=== PATIENT | female | born 1965 | race Caucasian/White ===

== ENCOUNTER 2018-07-12 15:49 | Emergency (ER) | payer SELFPAY ==
[2018-07-12 17:40] LABS: BASOPHILS # (AUTO) 0.1 10^3/uL (0.0-0.1); BASOPHILS % (AUTO) 0.9 %; EOSINOPHILS # (AUTO) 0.2 10^3/uL (0.0-0.7); EOSINOPHILS % (AUTO) 1.6 %; HGB - HEMOGLOBIN 12.7 g/dL (12.0-16.0); LYMPHOCYTES # (AUTO) 2.1 10^3/uL (1.5-3.5); LYMPHOCYTES % (AUTO) 21.2 %; MEAN CORPUSCULAR HEMOGLOBIN 30.9 pg (27.0-31.0); MEAN CORPUSCULAR VOLUME 90.8 fL (81.0-99.0); MEAN PLATELET VOLUME 7.8 fL (7.9-10.8); MONOCYTES # (AUTO) 0.8 10^3/uL (0.0-1.0); MONOCYTES % (AUTO) 8.3 %; NEUTROPHILS # (AUTO) 6.7 10^3/uL (1.5-6.6); PLT - PLATELET COUNT 303 10^3/uL (130-450); RED BLOOD COUNT 4.12 10^6/uL (4.20-5.40); RED CELL DISTRIBUTION WIDTH 13.5 % (12.0-15.0); WHITE BLOOD COUNT 9.9 x10^3/uL (4.8-10.8)
[2018-07-12 17:49] LABS: CREATININE 0.7 mg/dL (0.4-1.0); MAGNESIUM 2.6 mg/dL (1.7-2.8)
[2018-07-12] MEDS ORDERED: CYCLOBENZAPRINE 10 MG TABLET PO STA (18:14)
--- NOTE | 2018-07-12 18:18 | ED Physician Documentation ---
PD HPI LOWER EXT INJURY - Stated complaint Stated Complaint: R LEG PX - Chief complaint Chief Complaint: Ext Problem - History obtained from History obtained from: Patient, Family - History of Present Illness PD HPI LOW EXT INJURY LOCATION: Right (For the last 2 days she has had pain in the right thigh that is worse with movements. There was no injury. There is no associated fevers or chills. It has made it somewhat difficult to walk. She has had similar problems with her neck in the past and she requests a muscle relaxer. She denies any swelling of the affected extremity. She has no health issues.) Review of Systems Constitutional: denies: Fever, Chills Cardiac: denies: Chest pain / pressure, Palpitations Respiratory: denies: Dyspnea, Cough GI: denies: Abdominal Pain PD PAST MEDICAL HISTORY - Past Medical History Past Medical History: No Cardiovascular: None Respiratory: None Neuro: None Endocrine/Autoimmune: None GI: None CALENDER OPERATOR: None : None HEENT: None Psych: None Musculoskeletal: None Derm: None - Past Surgical History Past Surgical History: Yes /CALENDER OPERATOR: section - Present Medications Home Medications: Ambulatory Orders Medication Instructions Recorded Confirmed Cyclobenzaprine [Flexeril] 10 mg PO TID PRN #20 tablet 07/12/18 - Allergies Allergies/Adverse Reactions: Allergies Allergy/AdvReac Type Severity Reaction Status Date / Time No Known Drug Allergies Allergy Verified 07/12/18 16:34 - Social History Does the pt smoke?: No Smoking Status: Never smoker Does the pt drink ETOH?: No Does the pt have substance abuse?: No - Immunizations Immunizations are current?: No - POLST Patient has POLST: No PD ED PE NORMAL - Vitals Vital signs reviewed: Yes - General General: Alert and oriented X 3, No acute distress - Extremities Extremities: Other (She has mild tenderness of the right anterior thigh, there is no warmth or redness. She is able to walk and bear weight. Flexion at the knee is nonpainful as is extension at the knee. There is no calf swelling or tenderness.) - Neuro Neuro: Alert and oriented X 3, Normal speech Results - Vitals Vitals: Vital Signs - 24 hr 07/12/18 16:32 Temperature 36.8 C Heart Rate 87 Respiratory 18 Rate Blood Pressure 135/81 H O2 Saturation 99 Oxygen O2 Source Room air - Labs Labs: Laboratory Tests 07/12/18 07/12/18 17:32 17:32 WBC 9.9 RBC 4.12 L Hgb 12.7 Hct 37.4 MCV 90.8 MCH 30.9 MCHC 34.0 RDW 13.5 Plt Count 303 MPV 7.8 L Neut # (Auto) 6.7 H Lymph # (Auto) 2.1 [place]ison # (Auto) 0.8 Eos # (Auto) 0.2 Baso # (Auto) 0.1 Absolute Nucleated RBC 0.00 Nucleated RBC % 0.0 Sodium 138 Potassium 3.7 Chloride 102 Carbon Dioxide 23 Anion Gap 13.0 BUN 13 Creatinine 0.7 Estimated GFR (MDRD) 87 L Glucose 173 H Calcium 9.0 Magnesium 2.6 - Rads (name of study) RLE Dvt sono Radiology: EMP read contemporaneously (neg) Departure - Departure Disposition: 01 Home, Self Care Clinical Impression: Pain of lower extremity Qualifiers: Laterality: right Qualified Code(s): M79.604 - Pain in right leg Condition: Good Record reviewed to determine appropriate education?: Yes Instructions: ED Strain Muscle Ext Prescriptions: Cyclobenzaprine [Flexeril] 10 mg PO TID PRN #20 tablet PRN Reason: Spasms Print Language: Slovenian Comments: Harvey nivel de azcar en la cameron est ligeramente elevado, cari un seguimiento con harvey mdico para esto. Regrese por nuevos sntomas de empeoramiento especialmente fiebre o peor dolor. Harvey presin arterial se elev hoy en el departamento de emergencias. [place] no significa que tenga hipertensin, es un fenmeno comn acudir al servicio de urgencias y tener presin arterial elevada. Le recomiendo que consulte a harvey mdico de atencin primaria dentro de la semana para que le vuelvan a revisar cuando se sienta mejor.
--- NOTE | 2018-07-12 18:27 | Ultrasound Report ---
Reason: RLE PAIN Procedure Date: 07/12/2018 Accession Number: [id number] / [id number] Procedure: US - Duplex Ext Veins Right CPT Code: FULL RESULT: EXAM: RIGHT LOWER EXTREMITY VENOUS ULTRASOUND EXAM DATE: 07/12/2018 06:00 PM. CLINICAL HISTORY: Right lower extremity cramping pain for 2 days. COMPARISON: None. TECHNIQUE: Real-time sonographic vascular imaging was performed by the superintendent water and sewer systems through the lower extremity utilizing both color-flow and Doppler spectral analysis. Multiple hvac sales representative static images were saved for review. FINDINGS: Examination mildly limited because of patient body habitus. Common Femoral Vein (CFV): Normal. CFV-GSV Junction: Normal. Profunda Femoral Vein (PFV): Normal. Femoral Vein (FV) Prox: Normal. Femoral Vein (FV) Mid: Normal. Femoral Vein (FV) Dist: Normal. Popliteal Vein: Normal. Posterior Tibial Veins: Normal. Peroneal Veins: Normal. Other: None. IMPRESSION: No evidence for deep venous thrombosis. [facility]
[2018-07-12 18:30] VITALS: BP 128/71
== END 2018-07-12 18:33 | disposition home or self-care (01) ==
LOC: ED 15:49
DX: M79.651 Pain in right thigh (principal)
CPT/HCPCS: 36415; 80048; 83735; 85025; 93971; 99283; A9270

== ENCOUNTER 2020-11-16 09:05 | Outpatient (CLI) | payer MEDICAID ==
[2020-11-16 13:45] LABS: ESTIMATED AVERAGE GLUCOSE 151 mg/dL (70-100); HEMOGLOBIN A1c% 6.9 % (4.27-6.07)
== END 2020-11-16 09:06 | disposition home or self-care (01) ==
LOC: LAB.N 09:05 → MERGE 09:05 → LAB.N 09:06
PROVIDERS: ATTEND Physician Assistant
DX: R73.9 Hyperglycemia, unspecified (principal)
CPT/HCPCS: 36415; 83036

== ENCOUNTER 2020-11-20 12:05 | Outpatient (CLI) | payer MEDICAID ==
--- NOTE | 2020-11-20 16:01 | XRAY Report ---
PROCEDURE: Ankle 3 View LT INDICATIONS: L ANKLE PX TECHNIQUE: 3 views of the ankle were acquired. COMPARISON: None FINDINGS: Bones: No fractures or dislocations. Ankle mortise is normally aligned. No suspicious bony lesions . Calcaneal spur is present. Soft tissues: No tibiotalar joint effusion. Achilles tendon appears normal. IMPRESSION: No visualized acute fracture or dislocation. However, occult injury cannot be excluded. Recommend short interval imaging follow-up in 7-10 days as clinically indicated for additional evalua tion. Reviewed by: Madonna Mckeon MD on 11/20/2020 3:59 PM PDT Approved by: Madonna Mckeon MD on 11/20/2020 3:59 PM PDT Station ID: [id number]
== END 2020-11-20 12:06 | disposition home or self-care (01) ==
LOC: DI.N 12:05
PROVIDERS: ATTEND Physician Assistant
DX: M25.572 Pain in left ankle and joints of left foot (principal)